=== PATIENT | female | born 1925 | race Caucasian/White ===

== ENCOUNTER 2016-10-26 03:46 | Observation (INO) | payer MEDICARE, OTHER ==
[~2016-10-26] VITALS: Ht 152.4 cm; Wt 61.9 kg
[2016-10-26] VITALS (7 sets, daily range): BP systolic 132–145; BP diastolic 62–67; PULSE 62–85; RESP 18–20; O2SAT 95–98
[~2016-10-26 03:46] MED LIST: ACET325T51 PO; AMLO10TA3 PO; ASPI-973 PO; ATRV10T PO; Al Hydrox/Mg Hydrox/Simeth PO; BUSP5TAB3 PO; CALC600T12 PO; DEXT1DRO8 BOTH_EYES; DEXT350P5 PO; DOCU-41 PO; FERR325T20 PO; HYDR-4003 PO; LEVO50TA6 PO; LINE600T2 PO; LISI2.5T PO; OMEG1CAP56 PO; OMEP20TA86 PO; ONDA-54 PO; POLY17PO6 PO; PSYL660P17 PO; VIT1CAPS27 PO
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
[2016-10-26 04:59] LABS: APPEARANCE,URINE CLOUDY (CLEAR,HAZY); COLOR,URINE YELLOW (YELLOW); OCCULT BLOOD,URINE SMALL (NEGATIVE); UROBILINOGEN,URINE NORMAL (NORMAL); YEAST,URINE MANY (NONE SEEN)
[2016-10-26] MEDS ORDERED: cefTRIAXone Inj 2 GM in IV Premix 1 EACH IV ONE (05:15)
[2016-10-26] MEDS ORDERED: cefTRIAXone Inj 2,000 MG in Dextrose 5% Minibag Plus 50 ML IV SCH (05:50)
[2016-10-26 06:57] LABS: TROPONIN T 0.01 ug/L (0.0-0.011)
[2016-10-26 06:59] LABS: BASOPHILS % (AUTO) 0.3 % (0-3); EOSINOPHILS % (AUTO) 1.4 % (0-5); Mean Corpuscular Hemoglobin 29.8 pg (27.0-35.0); Mean Corpuscular Volume 92.1 fL (81-100); NEUTROPHILS % (AUTO) 76.7 % (40-74); Platelet Count 176 bil/L (150-400)
[2016-10-26 07:17] LABS: Magnesium 1.8 mg/dL (1.6-2.6)
[2016-10-26] MEDS ORDERED: Haloperidol 5 mg/mL Inj IM PRN (09:15)
[2016-10-26] MEDS ORDERED: Ondansetron 2 mg/mL 2 mL Inj IVPUSH PRN (12:10)
[2016-10-26] MEDS ORDERED: Alum-Mag Hydrox-Simeth 30 mL Suspension PO PRN (12:10)
[2016-10-26] MEDS ORDERED: HYDROcodone-APAP 5-325 mg Tablet PO PRN (12:10)
[2016-10-26] MEDS ORDERED: Polyethylene Glycol (PEG) 17 Gm Powder PO PRN (12:10)
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
[2016-10-26] MEDS ORDERED: MAG355OR31 PO (14:21)
[2016-10-26] MEDS ORDERED: ONDA-53 PO (14:21)
--- NOTE | 2016-10-26 14:30 | NUR ---
Admit pt arrived on unit verbally abusive and combative. Pt was given Haldol in ER after becoming aggressive with staff. Pt has bilateral LE and UE sore/scabs from picking skin; bilateral upper medial buttocks has old skin breakdown/possible pressure ulcers which wound care assessed and said no dressing just barrier wipes. Bilateral LE edema. Pt is alert to self only. 1-2PA assist to BSC. Pt was incontinent of urine X1 and then was able to get to BSC. Vs WNL, IV running NS @ 100ml/hr,tele set up SR 68-71. Pt stated that her legs hurt when touched but at rest no pain. Pt asked for 5 blankets and is now sleeping
[2016-10-26] MEDS: 0.9% Sodium Chloride 1,000 ML IV SCH ×2 (15:51→22:10)
--- NOTE | 2016-10-26 17:03 | NUR ---
Wound Care Pressure ulcer protocol received, pt seen at bedside. SNF resident admitted with UTI. Pt has a mepilex sacral dressing on this is removed to assess, pt has 2 small superficial open areas which are not pressure related and look to be rather a moisture related skin irritation, recommend that this be treated with shield wipes daily, good pericare and positioning to off load fragile skin. No pressure related skin issues at this time.
[2016-10-27 01:22] VITALS: BP 161/71; PULSE 65; RESP 18; O2SAT 98
--- NOTE | 2016-10-27 01:43 | NUR ---
IV removal/Placement While Pt was sitting on the BSC she ripped out her IV. Pt was educated regarding its importance to her care. Pt replied with I don't care. notified and decided Pt needed a new IV regardless of her current state of mind. Pt got a new IV using sterile technique. 3 attempts were tried before the 3rd site was successful. Pt Re-educated regarding its importance for her recovery.
[2016-10-27 05:23] VITALS: BP 138/62; PULSE 70; RESP 18; O2SAT 97
[2016-10-27] MEDS: 0.9% Sodium Chloride 1,000 ML IV SCH (05:31)
[2016-10-27] MEDS ORDERED: cefTRIAXone 2,000 mg Inj IV SCH (08:00)
[2016-10-27 08:57] VITALS: PULSE 74
--- NOTE | 2016-10-27 09:25 | PCM.PNMED ---
Subjective Date of Service Oct 27, 2016 Subjective Patient is an 89 year old female with a past medical history of Essential Hypertension, Hypothyroidism, Alzheimer's Disease, Hyperlipidemia, CAD, Congestive Heart Failure, and GERD admitted for AMS likely due to UTI. Overnight, she was noted to be verbally abusive to staff members. This morning she is sleeping but arousable. When asked if she has any complaints, she said no and told me to leave her alone. Exam Vital Signs Vital Sign - Last Date Time Temp Pulse Resp B/P Pulse Ox O2 Delivery O2 Flow Rate FiO2 10/27/16 05:23 36.9 70 18 138/62 97 Room Air Intake and Output 10/26/16 10/26/16 10/27/16 Cumulative From/Thru 15:00 23:00 07:00 10/26/16 15:28 - 10/27/16 05:59 Intake Total 197 ml 858 ml 1055 ml Output Total 650 ml 650 ml Balance 197 ml 208 ml 405 ml Intake Oral 0 ml 0 ml 0 ml IV Total 197 ml 858 ml 1055 ml Output Urine Total 650 ml 650 ml # Voids 2 2 4 Exam GENERAL: NAD, Pt laying in bed comfortably CARDIAC: RRR; No M/R/G PULM: CTAB; No wheezes or rhonchi bilaterally ABD: Soft, Nontender, Nondistended, Positive bowel sounds in all quadrants, No Hepatosplenomegaly appreciated EXT: No C/C/E; No calf tenderness bilaterally SKIN: Warm, Dry, [place], and Intact NEURO: No focal weakness, face symmetric PSYCH: Aggressive mood. IVs and Medications Medications Reviewed: Medications were reviewed in detail Lab and Diagnostics Result Diagram: 10/26/16 0534 10/26/16 0534 Assessment & Plan Patient is an 89 year old female admitted to hospital for a Altered Mental Status secondary to an Acute UTI. 1. Altered Mental Status - Secondary to underlying UTI - Will treat UTI, see #2 - Regular neuro checks - Still aggressive in behavior, but does answer questions appropriately 2. Acute Urinary Tract Infection - Present on admission - UA positive for - Start IV Rocephin 2 grams daily 10/26 3. Acute Kidney Injury - Secondary to dehydration likely - Started IV Normal Saline at 100 mL/hour - Recheck BMP in AM - Pt apparently does not have CKD at baseline and renal function was normal during last hospital admission - Pt refusing blood draws this AM, will need reinforcement to draw blood for appropriate tx. 4. Essential Hypertension - Will resume pts home medications, but hold Lisinopril for now given #3 - Monitor BP closely - Stable 5. Hypothyroidism - Continue home Synthroid 6. Coronary Artery Disease - Continue home Aspirin - Continue statin therapy 7. Hyperlipidemia - Continue home statin therapy and fish oil 8. Disposition - Anticipate discharge back to [facility] within the next 1-2 days, once mentation returns to baseline and UTI is well treated CODE STATUS: DNR/DNI, per JEZ Pain Evaluation: Adequate Pain Control Resuscitation Status: DNR/DNI:Do Not Resuscitate/Intubate Attending Statement The patient was seen and examined together with Dr. Tyler on 10/27/2016 and I agree with the findings, assessment and plan as stated above. Min Tyler DO Oct 27, 2016 06:58 Micah Perez MD Oct 28, 2016 13:00
[2016-10-27 09:47] VITALS: BP 154/72; PULSE 70; RESP 20; O2SAT 95
[2016-10-27] MEDS: cefTRIAXone 2,000 mg/D5W 50 mL IV Minibag Plus IV SCH ×2 (11:17)
--- NOTE | 2016-10-27 11:30 | NUR ---
Behavior Pt has been drowsy, however does arouse to voice. Refused to allow lab to complete blood draw. MD aware, requesting lab draw be completed as necessary for care. This RN spoke with pt regarding importance of having blood work completed to allow proper Dx of concerns while on [facility]. Lab at bedside, requested assistance with draw. Pt reluctantly allowed completion of lab work. Frequent rounding in place, will continue to monitor.
[2016-10-27 11:46] LABS: EOSINOPHILS % (AUTO) 4.5 % (0-5); MONOCYTES % (AUTO) 9.6 % (4-12); Mean Corpuscular Hemoglobin 30.1 pg (27.0-35.0); Mean Corpuscular Volume 92.1 fL (81-100); NEUTROPHILS % (AUTO) 70.2 % (40-74); Platelet Count 146 bil/L (150-400)
--- NOTE | 2016-10-27 12:22 | NUR ---
Social Work-initial assessment/readiness for discharge: Data:See initial assessment. Pt is a 89 y/o female who was admitted on 10/26/16 for alerted Mental status per H&P. Pt insurance is [facility] and [facility] and PCP is Armando Herrera MD. EMR Reviewed. Pt's readmission score is 4-high risk. Pt has baseline dementia and lives at [facility]. SACHIN placed a call to pt's guardian Lillian Reddy [phone] and left message. SACHIN spoke with Zev at [facility] who confirms pt uses a FWW or w.c at baseline and does not drive. Pt has had HH and has been to SNF. Pt has no longterm care or VA benefits. [facility] confirms they will be able to accept pt back without an assessment, updated clinicals faxed to [phone]. SW to follow up with [facility] on day of discharge, which is likely tomorrow. SACHIN will continue to follow. Assessment:Pt who resides at [facility]. Plan:Pt to discharge back to [facility] when medically stable, updated clinicals faxed. [facility] confirms that they are able to accept pt back when medically stable without an assessment. SACHIN will continue to follow. HERMINIA Weeks Addendum: 10/27/16 at 1228 by LEN LOU SS Amended: Links added.
--- NOTE | 2016-10-27 12:30 | NUR ---
Case Management: Unable to give or explain OROZCO as pt. has Alzheimers. Sera RUELAS, RN
[2016-10-27 14:47] VITALS: BP 133/66; PULSE 66; RESP 18; O2SAT 95
[2016-10-27 20:00] VITALS: PULSE 54
[2016-10-28 00:33] VITALS: BP 148/67; PULSE 66; RESP 20; O2SAT 98
--- NOTE | 2016-10-28 03:29 | NUR ---
Incontinence Pt has been incontinent all shift and when she does get up to BSC her brief is already wet. Pt asked if she is able to call staff next time she has to go but pt just gets angry.
[2016-10-28 04:36] VITALS: BP 151/66; PULSE 64; RESP 18; O2SAT 95
[2016-10-28 06:00] LABS: EOSINOPHILS % (AUTO) 6.2 % (0-5); MONOCYTES % (AUTO) 12.2 % (4-12); Mean Corpuscular Hemoglobin 29.8 pg (27.0-35.0); Mean Corpuscular Volume 92.4 fL (81-100); NEUTROPHILS % (AUTO) 64.7 % (40-74); Platelet Count 150 bil/L (150-400)
[2016-10-28] MEDS ORDERED: 0.9% Sodium Chloride 250 ML ONE (07:36)
[2016-10-28] MEDS: cefTRIAXone 2,000 mg/D5W 50 mL IV Minibag Plus IV SCH ×2 (07:43)
[2016-10-28] MEDS ORDERED: QUET25TA73 PO (10:20)
--- NOTE | 2016-10-28 10:22 | PCM.DIMED ---
Discharge Instructions Date of Service Oct 28, 2016 Dates of Hospitalization Oct 26, 2016 at 14:02 Discharge Diagnosis Discharge Diagnosis 1. Altered Mental Status, Resolved 2. Acute UTI, Resolved 3. Alzheimer's Dementia with Psychosis, Ongoing Diet Low fat, Low Sodium, Heart Healthy Activity No restrictions Call your provider Fever or Chills, Shortness of breath, Bleeding, Chest pain, Vomitting, Excessive diarrhea, Weakness (unilateral) Patient Instructions Follow-up with PCP in: 1 week (Pts family or caregiver to call for an appointment.) Micah Perez MD Oct 28, 2016 10:22
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
[2016-10-28 10:45] VITALS: BP 131/58; PULSE 70; RESP 18; O2SAT 94
--- NOTE | 2016-10-28 12:05 | NUR ---
Social Work-discharge: Data:EMR Reviewed. Pt is on day 2 of hospitalization for alerted mental status per H&P. Pt is medically stable for discharge. SACHIN spoke with Timothy and RN at [facility] who state they have spoken with [place] and pt is fine to return. SACHIN faxed discharge orders to [phone]. [facility] does not have transport available today. SACHIN called pt's guardian Lillian [phone] and was informed to set up transport via [employer] and have them charge it to [facility]. Lillian aware pt is discharging today. SACHIN called [employer] and arranged taxi for 1220. SACHIN informed RN to have pt in main lobby. SACHIN called [facility] back and informed them of discharge time. RN,KARIN,pt/Guardian, and [facility] agreeable for pt to return today. All updated and agreeable to plan. Assessment:Pt who will return to [facility]. Plan:Pt to discharge back to [facility] assisted living today via private pay taxi at 1220. SACHIN confirmed payment with pt's guardian Lillian and she is aware of discharge. [facility] agreeable for pt to return today. All updated and agreeable to plan. HERMINIA Weeks
--- NOTE | 2016-10-28 12:24 | NUR ---
DISCHARGE Pt discharged back to [facility] this afternoon at 1220 via [employer]. Pt accompanied off unit to taxi in w/c by SOUND TRUCK OPERATOR. Pt is alert to self only. Staff at [facility] given report and orders faxed. Hard script for Seroquel packed with patient. Vital signs stable, pt denies any pain/discomfort. IV dc'd intact. All belongings sent with pt.
--- NOTE | 2016-10-28 14:31 | NUR ---
Case Management: Unable to deliver OROZCO to pt. r/t mental status. Attempted to deliver OROZCO to guardian Lillian @ [phone]. No answer. Pt. has now discharged. Yvrose Spencer RN
== END 2016-10-28 12:20 ==
LOC: EDUNIT# 03:46 → EDBD 03:46 → SED 03:46 → MPC 14:02
PROVIDERS: ADMIT Family Medicine; ATTEND Family Medicine
DX: R41.82 Altered mental status, unspecified (principal); N39.0 Urinary tract infection, site not specified; G30.9 Alzheimer's disease, unspecified; F02.81 Dementia in other diseases classified elsewhere, unspecified severity, with behavioral disturbance; N17.9 Acute kidney failure, unspecified; I10 Essential (primary) hypertension; R60.0 Localized edema; I50.9 Heart failure, unspecified; I25.10 Atherosclerotic heart disease of native coronary artery without angina pectoris; E78.5 Hyperlipidemia, unspecified; Z87.440 Personal history of urinary (tract) infections
CPT/HCPCS: 36415; 80048; 80053; 81000; 82308; 83690; 83735; 84484; 85025; 87086; 87088; 93005; 96365; 96366; 96372; 99285; G0378; J0696; J1630; J7030; J7050

== ENCOUNTER 2016-11-15 08:26 | Emergency (ER) | payer MEDICARE, OTHER ==
[~2016-11-15 08:26] MED LIST changes: -Al Hydrox/Mg Hydrox/Simeth PO; -LINE600T2 PO; +MAG355OR31 PO; -OMEP20TA86 PO; +ONDA-53 PO; -ONDA-54 PO; +QUET25TA73 PO
--- NOTE | 2016-11-15 08:32 | ED.REPORT ---
HPI-Trauma Minor / Fall Date of Service Nov 15, 2016 ED Provider: Maxwell Can MD 89 year old demented female with a history of falls presents to the ER via EMS from [facility] complaining of right hip pain status post ground level fall just prior to arrival. Patient states that "she doesn't know what happened; she was sleeping and the next thing she knew she was under the table". She denies any further injuries secondary to the fall. History is limited due to patient's underlying dementia. Nursing Notes Stated Complaint: GLF Nursing Notes Reviewed: Yes Allergies: Coded Allergies: Sulfa (Sulfonamide Antibiotics) (Verified Allergy, Unknown, 08/28/16) prednisone (Verified Allergy, Unknown, 08/28/16) Pt states prednisone makes her crazy. Scheduled Amlodipine (Amlodipine) 10 Mg Tablet 10 MG PO DAILY Aspirin (Aspirin) 81 Mg Tablet 81 MG PO DAILY Atorvastatin (Lipitor) 10 Mg Tab 10 MG PO HS Buspirone (Buspirone) 5 Mg Tablet 5 MG PO BID Calcium Carbonate (Calcium) 600 Mg Tablet 600 MG PO BID Ferrous Gluconate (Ferrous Gluconate) 324 Mg Tablet 324 MG PO DAILYWM Levothyroxine (Levothyroxine) 50 Mcg Tablet 50 MCG PO DAILY Lisinopril (Lisinopril) 2.5 Mg Tablet 2.5 MG PO DAILY [place]-3 Fatty Acids/Fish Oil ([place] 3 1,000 mg Softgel) 1 Each Capsule 1 EACH PO QAM Quetiapine Fumarate (Quetiapine Fumarate) 25 Mg Tablet 12.5 MG PO HS Vit C/Christiano AC/Lut/Copper/Znox (Preservision Lutein Softgel) 1 Each Capsule 1 EACH PO BID Scheduled PRN Acetaminophen (Acetaminophen) 325 Mg Tablet 650 MG PO Q4H PRN PRN For Fever Dextran 70/Hypromellose/Pf (Artificial Tears Drops) 1 Each Droperette 2 DROP BOTH_EYES Q4H PRN PRN For Eye Irritation Dextrin (Fiber) 350 Gm Powder 350 GM PO DAILY PRN PRN For Constipation Docusate Sodium (Colace) 100 Mg Capsule 100 MG PO BID PRN PRN For Constipation Hydrocodone-Acetaminophen 5-325 mg (Hydrocodone-Acetaminophen 5-325 mg) 1 Each Tablet 1 TABLET PO Q4H PRN PRN For Pain Mag Hydrox/Al Hydrox/Simeth (Antacid M Liquid) 355 Ml Oral.susp 30 ML PO QID PRN PRN For Dyspepsia or Heartburn Ondansetron (Ondansetron) 4 Mg Tablet 4 MG PO TID PRN PRN For Nausea Polyethylene Glycol 3350 (Miralax) 17 Gm Powd.pack 17 GM PO DAILY PRN PRN const Psyllium Husk (Metamucil) 3.4 Gram/5.4 Gram Powder 660 GM PO PRN For Constipation General Time Seen by MD: 08:32 Transferred From: longterm Chief Complaint Fall, Other (Right Hip) Hx Obtained From: Patient Arrived By: Ambulance Onset Occurred: Just prior to arrival Symptom Duration: Since onset Caused by: Accidental, Fall on ground Context: Occurred at: Home injury Location: Hip right Quality: Painful Severity: Current: Moderate Severity: Maximum: Moderate Pertinent Negative: Pt denies other symptoms Similar Sx Previous: Yes Past Medical History Past Medical History Notes: PCP: Dr. Jem STORY indicates DNR in the event of arrest, limited interventions otherwise. Past Medical History 1. Hypothyroid, on replacement 2. 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 Dementia 4. Multiple ground-level falls with musculoskeletal pain 5. Hypertension 6. recurrent UTI 7. pressure ulcers on buttocks 8. Congestive heart failure 9. renal failure 10. history of MRSA Past Surgical History Appendectomy, breast lumpectomy, ovarian cyst surgery Family History noncontributory Smoking History Unknown if Ever Smoker Social History Lives at [facility] Alcohol Use: Denies alcohol use Drug Use: Denies drug use Other Social History: Lives in senior living, Local resident Ambulatory Status Independent Review of Systems Musculoskeletal: Reports: Joint pain (Right Hip), Denies: Back pain, Extremity pain, Lumbar pain, Neck pain Neurologic: Denies: Headache, Syncope Complete sys rev & neg: except as marked. Physical Exam Initial Vital Signs Vital Signs (First) Date Time Temp Pulse Resp B/P Pulse Ox O2 Delivery O2 Flow Rate FiO2 11/15/16 08:49 36.7 57 15 147/41 96 Room Air Initial VS: Reviewed Head / Eyes: Atraumatic, Normocephalic Skin: Warm, Dry, No cyanosis Neurologic: Alert, Oriented, Nonfocal General/Constitutional: Awake, Alert Neck: Atraumatic, Supple, Full range of motion, No swelling, Non-tender, No midline vertebral tend Respiratory / Chest: Breath sounds NL, Breath sounds = bilat, No respiratory distress, No rales, No rhonchi, No wheezing, No chest tenderness, No chest wall deformity, No crepitus Cardiovascular: Heart rate NL, Heart sounds NL, Cap refill not delayed, Peripheral circulation NL Heart Rate / Rhythm: Positive: Irregular rhythm Abdomen: Soft, Non-tender, No guarding, No rebound Mild left side tenderness. Upper Extremity / MS: Atraumatic, Inspection NL, Full range of motion, No swelling, Non-tender, No erythema, No deformity, Neurologic intact, Vascular intact Lower Extremity / Pelvis / MS: Full range of motion, Neurologic intact, Vascular intact Right Hip: Positive: Tenderness present... (greater trochanter), Negative: Leg externally rotated Interpretation & Diagnostics Lab Results Interpretation Result Diagram: 11/15/16 1156 11/15/16 1156 Test 11/15/16 11:56 11/15/16 12:09 White Blood Count 5.2th/mm3 (3.8-10.1) Red Blood Count 4.08mil/mm3 (3.90-5.20) Hemoglobin 12.4g/dL (12.0-15.6) Hematocrit 37.3% (35.0-46.0) Mean Corpuscular Volume 91.4fL (81-100) Mean Corpuscular Hemoglobin 30.4pg (27.0-35.0) Mean Corpuscular Hemoglobin Concent 33.2% (32.0-37.0) Red Cell Distribution Width 13.9% (12.3-15.4) Platelet Count 176bil/L (150-400) Neutrophils (%) (Auto) 69.7% (40-74) Lymphocytes (%) (Auto) 18.0% (14-46) Monocytes (%) (Auto) 8.6% (4-12) Eosinophils (%) (Auto) 2.9% (0-5) Basophils (%) (Auto) 0.6% (0-3) Sodium Level 138mEq/L (134-144) Potassium Level 4.0mEq/L (3.5-5.2) Chloride Level 101mEq/L (97-108) Carbon Dioxide Level 24mmol/L (18-29) Blood Urea Nitrogen 19mg/dL (8-27) Creatinine 0.90mg/dL (0.57-1.00) Estimat Glomerular Filtration Rate 84mL/min (>59) Glucose Level 88mg/dL (60-99) Calcium Level 9.6mg/dL (8.5-10.1) Magnesium Level 1.8mg/dL (1.6-2.6) Total Bilirubin 0.5mg/dL (0.0-1.2) Aspartate Amino Transf (AST/SGOT) 17U/L (0-50) Alanine Aminotransferase (ALT/SGPT) 9U/L (0-32) Alkaline Phosphatase 70U/L (25-165) Total Protein 6.8g/dL (6.4-8.4) Albumin 3.6g/dL (3.4-5.0) Urine Color Straw (YELLOW) Urine Appearance Cloudy (CLEAR,HAZY) Urine pH 6.5 (5.0-8.0) Urine Specific [place] 1.005 (1.003-1.035) Urine Protein Negativemg/dL (NEG,TRACE) Urine Glucose (UA) Negativemg/dL (NEGATIVE) Urine Ketones Negativemg/dL (NEGATIVE) Urine Occult Blood Small (NEGATIVE) Urine Nitrite Negative (NEGATIVE) Urine Bilirubin Negative (NEGATIVE) Urine Urobilinogen Normalmg/dL (NORMAL) Urine Leukocyte Esterase Large (NEGATIVE) Urine RBC 0-2/hpf (0-2) Urine WBC >50/hpf (0-5) Urine Epithelial Cells Occasional/hpf (NONE-MOD) Urine Crystals None seen (NONE SEEN) Urine Bacteria Few/hpf (NONE-FEW) Urine Hyaline Casts None/lpf (NONE) Urine Granular Casts None seen (NONE SEEN) Urine Waxy Casts None seen (NONE SEEN) Urine Red Blood Cell Casts None seen (NONE SEEN) Urine White Blood Cell Casts None seen (NONE SEEN) Urine Mucus None seen (None Seen) Urine Trichomonas None seen (NONE SEEN) Urine Yeast Moderate (NONE SEEN) Urinalysis Comment None Urine Culture Reflexed Indicated ECG Interpretation ECG Interpretation: Sinus rhythm, rate 58 Low voltage, extremity leads Time: 10:18 Interpreted by: ED physician X-Ray Interpretation Xray Interpretation: IMPRESSION: No fracture or dislocation. If clinical symptoms persist or clinical suspicion for pathology is high, a repeat examination in 7-10 days, or advanced imaging such as CT or MRI is suggested for further evaluation. Dictated by: Jason Neil M.D. on 11/15/2016 at 9:27 Approved by: Jason Neil M.D. on 11/15/2016 at 9:28 X-Ray Ordered: Pelvis, Hip right Interpretation / Wet Read by: Interpret - Radiologist Re-Eval/Medical Decision Source of Hx: Old records Re-Evaluation/Progress #1: Time of Eval: 10:42 Re-Evaluation/Progress Note: Patient is now accompanied by a female humane agent who works for the patient's [employer] company. She reports another non-injury fall yesterday. Discussed x-ray results and plan to discharge pending lab results. Guarding understands and agrees to the plan. Re-Evaluation/Progress #2: Time of Eval: 13:18 Re-Evaluation/Progress Note: Discussed lab and radiology results and plan to discharge. Patient is amenable to the plan. Return precautions given. All other questions addressed. Counseled Regarding: Diagnosis, Lab results, Need for follow-up, When/why to return to ED Discharge & Departure Impression: Primary Impression: Fall from ground level Additional Impressions: UTI (urinary tract infection) Urinary tract infection type: acute cystitis Hematuria presence: with hematuria Qualified Code: N30.01 - Acute cystitis with hematuria Contusion of right hip Disposition: Home Discharge Condition All VS Reviewed: Yes Condition: Stable Patient Instructions: Urinary Tract Infection in Women (DC) Additional Instructions: No dangerous injuries are discovered. There is apparently a urinary tract infection. Take ciprofloxacin 500 mg twice daily for 7 days. Return for further evaluation if Wanda is unable to bear weight on her right hip. Follow- up in a week with primary care for reassessment. She will need standby assist for all transfers for the next 24-48 hours to prevent falls. Referrals: MARGARETTE RUTHERFORD DO (PCP) Theodoreibjasiel Attestation Portions of this note were transcribed by Dylan Bee. I, Dr. Can, personally performed the history, physical exam and medical decision-making; I reviewed and confirmed the accuracy of the information in the transcribed note. Signed by: Dea Cruz, 11/15/2016 and 13:19 copies to: MARGARETTE RUTHERFORD Kirk H MD Nov 15, 2016 08:32 DYLAN BEE 16, 2017 08:38
[2016-11-15 08:49] VITALS: BP 147/41; PULSE 57; RESP 15; O2SAT 96
--- NOTE | 2016-11-15 09:30 | DRSVH ---
PROCEDURE: X-RAY PELVIS W/LAT HIP (RT) ([id number]) INDICATIONS: trauma TECHNIQUE: AP pelvis with lateral view(s) of the right hip(s). COMPARISON: [facility], CR, XR PELVIS W LATERAL HIP RT, 08/03/2016, 11:27. FINDINGS: Bones: No fractures or dislocations. Pelvic ring appears intact. No suspicious bony lesions. Mild symmetrical hip and sacroiliac joint degeneration. Soft tissues: The visualized bowel gas pattern is normal. No suspicious soft tissue calcifications. IMPRESSION: No fracture or dislocation. If clinical symptoms persist or clinical suspicion for patho logy is high, a repeat examination in 7-10 days, or advanced imaging such as CT or MRI is suggested f or further evaluation. Dictated by: Jason Neil M.D. on 11/15/2016 at 9:27 Approved by: Jason Neil M.D. on 11/15/2016 at 9:28
[2016-11-15 12:01] LABS: BASOPHILS % (AUTO) 0.6 % (0-3); EOSINOPHILS % (AUTO) 2.9 % (0-5); MONOCYTES % (AUTO) 8.6 % (4-12); Mean Corpuscular Hemoglobin 30.4 pg (27.0-35.0); Mean Corpuscular Volume 91.4 fL (81-100); NEUTROPHILS % (AUTO) 69.7 % (40-74); Platelet Count 176 bil/L (150-400)
[2016-11-15 12:28] LABS: Magnesium 1.8 mg/dL (1.6-2.6)
[2016-11-15 12:33] LABS: APPEARANCE,URINE CLOUDY (CLEAR,HAZY); COLOR,URINE STRAW (YELLOW); OCCULT BLOOD,URINE SMALL (NEGATIVE); PH,URINE 6.5 (5.0-8.0)
[2016-11-15 12:34] LABS: UROBILINOGEN,URINE NORMAL (NORMAL)
[2016-11-15 12:40] LABS: YEAST,URINE MODERATE (NONE SEEN)
--- NOTE | 2016-11-15 13:07 | DRSVH ---
PROCEDURE: X-RAY CHEST ONE VIEW, PORTABLE ([id number]) INDICATIONS: falls TECHNIQUE: One view of the chest was acquired. COMPARISON: [facility], CR, XR CHEST 1VW (PORTABLE), 08/28/2016, 6:12. FINDINGS: Surgical changes and devices: None. Lungs and pleura: Chronic increased pulmonary interstitium. No pleural effusions or pneumothorax. L ungs are clear. Mediastinum: Mediastinal contours appear normal. Heart size is normal. Bones and chest wall: No suspicious bony lesions. Overlying soft tissues appear unremarkable. IMPRESSION: No acute cardiopulmonary disease. Dictated by: Jason Neil M.D. on 11/15/2016 at 13:01 Approved by: Jason Neil M.D. on 11/15/2016 at 13:06
[2016-11-15] MEDS ORDERED: CIPR-231 PO (13:25)
[2016-11-15 13:56] VITALS: BP 154/52; PULSE 65; RESP 20; O2SAT 94
== END 2016-11-15 13:25 | disposition home or self-care (01) ==
LOC: SED 08:26
DX: S70.01XA Contusion of right hip, initial encounter (principal); W18.39XA Other fall on same level, initial encounter; Y93.89 Activity, other specified; Y92.129 Unspecified place in nursing home as the place of occurrence of the external cause; Y99.8 Other external cause status; N30.01 Acute cystitis with hematuria; B37.89 Other sites of candidiasis; I11.0 Hypertensive heart disease with heart failure; I50.9 Heart failure, unspecified; F03.90 Unspecified dementia, unspecified severity, without behavioral disturbance, psychotic disturbance, mood disturbance, and anxiety; E03.9 Hypothyroidism, unspecified; Z79.82 Long term (current) use of aspirin; Z88.2 Allergy status to sulfonamides; Z88.8 Allergy status to other drugs, medicaments and biological substances; Z91.81 History of falling; Z87.440 Personal history of urinary (tract) infections; Z86.14 Personal history of Methicillin resistant Staphylococcus aureus infection